=== PATIENT | male | born 1960 | race Caucasian/White ===

== ENCOUNTER 2024-07-27 17:21 | Emergency (ER) | payer SELFPAY ==
[~2024-07-27] VITALS: Ht 175.3 cm; Wt 85.0 kg
[2024-07-27 17:25] VITALS: O2SAT 96
[2024-07-27 17:26] VITALS: BP 143/74; PULSE 63; RESP 18; TEMP 98.7; O2SAT 96
[2024-07-27 18:01] LABS: CLARITY URINE CLEAR (CLEAR); COLOR URINE YELLOW (YELLOW); GLUCOSE URINE NEGATIVE (NEGATIVE); KETONES URINE 2+ (NEGATIVE); LEUKOCYTE ESTERASE URINE NEGATIVE (NEGATIVE); NITRITE URINE NEGATIVE (NEGATIVE); OCCULT BLOOD URINE NEGATIVE (NEGATIVE); PH URINE 7.5 (4.5-8.0); PROTEIN URINE NEGATIVE (NEGATIVE); SPECIFIC GRAVITY URINE 1.023 (1.005-1.030)
[2024-07-27 18:20] LABS: CHLORIDE 106 mEq/L (98-107); POTASSIUM 3.5 mEq/L (3.5-5.1); SODIUM 142 mEq/L (136-145)
[2024-07-27 18:21] LABS: CALCIUM 9.6 mg/dL (8.7-10.4); CARBON DIOXIDE 28 mEq/L (21-32)
[2024-07-27 18:25] LABS: BASOPHILS % 0.4 % (0.0-2.0); EOSINOPHILS % 0.4 % (0.0-5.0); HEMOGLOBIN. 14.9 g/dL (14.0-18.0); LYMPHOCYTES % 13.5 % (20.0-50.0); MEAN CORPUSCULAR HEMOGLOBIN 30.8 pg (28.0-32.0); MEAN CORPUSCULAR HGB CONC 33.1 g/dL (31.0-37.0); MONOCYTES % 3.5 % (2.0-8.0); NEUTROPHILS % 82.2 % (40.0-76.0); PLATELET 228 x1000/uL (130-400); RED BLOOD CELL COUNT 4.83 mill/uL (4.7-6.1); RED CELL DISTRIBUTION WIDTH 14.3 % (11.6-14.6); WHITE BLOOD COUNT 9.5 x1000/uL (4.5-11.0)
[2024-07-27 18:26] LABS: CREATININE 0.9 mg/dL (0.6-1.3); GLUCOSE 136 mg/dL (70-105); UREA NITROGEN BLOOD 14 mg/dL (9-23)
[2024-07-27 18:50] LABS: ALANINE AMINOTRANSFERASE 15 IU/L (10-49); ALBUMIN 4.8 g/dL (3.2-4.8); ASPARTATE AMINOTRANSFERASE 21 IU/L (<34); BILIRUBIN DIRECT 0.2 mg/dL (<=3.0); BILIRUBIN TOTAL 0.7 mg/dL (0.1-1.0)
[2024-07-27 18:51] LABS: PROTEIN TOTAL 7.2 g/dL (6.0-8.3)
[2024-07-27] MEDS: FAMOTIDINE 20MG TABLET PO ONE (19:41)
[2024-07-27] MEDS: ACETAMINOPHEN 325MG TABLET PO ONE (19:41)
[2024-07-27] MEDS: ONDANSETRON 4MG ODT PO ONE (19:42)
[2024-07-27] MEDS ORDERED: FAMO-134 PO (19:58)
[2024-07-27] MEDS ORDERED: ONDA-239 PO (19:58)
== END 2024-07-27 20:24 | disposition home or self-care (01) ==
LOC: ER 17:21
DX: R10.13 Epigastric pain (principal); R11.2 Nausea with vomiting, unspecified
CPT/HCPCS: 99284; 76705; 80076; 80048; 81003; 83690; 85025; 36415; Q0162